=== PATIENT | female | born 1990 | race Caucasian/White ===

== ENCOUNTER → 2019-04-04 | Outpatient (CLI) | payer OTHER ==
[~2019-04-04] MED LIST: METHACHOLINE KIT (J7674) INH ONE
== END ==
LOC: M CARPUL 02-21 13:18
PROVIDERS: ATTEND Nurse Practitioner Adult Health
DX: Z53.9 Procedure and treatment not carried out, unspecified reason (principal); R06.02 Shortness of breath

== ENCOUNTER → 2019-04-24 | Outpatient (CLI) | payer OTHER ==
[2019-04-24 08:26] LABS: HCG, SERUM QUANTITATIVE < 1.0 MIU/ML
--- NOTE | 2019-04-24 09:00 | REP ---
Pelvic sonography: History: Infertility. Findings: Transvaginal scanning demonstrates normal uterine dimensions measured at 7.1 x 3.1 x 3.8 cm. The endometrial stripe is 0.3 cm thick. No focal uterine mass seen. No free fluid is noted. The overall dimensions of the right ovary today are 5.0 x 2.6 x 2.0 cm. There are no follicles in the ovary measuring greater than a centimeter. There are numerous (approximately 42) follicles in the right ovary ranging in size from 0.15-0.72 centimeters. The overall dimensions of the left ovary are 4.7 x 3.4 x 2.0 cm. There are no follicles in the left ovary measuring over a centimeter. There are numerous (approximately 53) subcentimeter follicles in the left ovary ranging in size from 0.19-0.75 cm. Impression: Ovarian follicle study as above. Electronically Signed by Raji Castillo MD 04/24/2019 08:51 A
[2019-04-24 10:03] LABS: ESTRADIOL 75.5 PG/ML
== END ==
LOC: M RAD 07:36
PROVIDERS: ATTEND Obstetrics & Gynecology
DX: Z31.41 Encounter for fertility testing (principal)

== ENCOUNTER → 2019-05-02 | Outpatient (CLI) | payer OTHER ==
--- NOTE | 2019-05-02 08:31 | REP ---
Clinical: Infertility. Technique: Transvaginal ultrasound examination. Findings: Anteverted uterus measures 7.3 x 2.7 x 3.8 cm with 3.7 mm endometrial stripe and few subcentimeter Nabothian cysts in the lower uterine segment/cervical region. Right ovary measures 4.5 x 2.1 x 3.8 cm and includes greater than 40 sub centimeter follicles between 2.0 and 8.1 mm. Left ovary measures 4.1 x 2.0 x 4.3 cm and includes greater than 50 sub centimeter follicles between 2.0 and 8.1 mm. Small amount of free fluid in the right adnexa. Impression: Bilateral sub centimeter follicles. Anteverted uterus with subcentimeter Nabothian cysts. Electronically Signed by Carlos Sanchez MD 05/02/2019 08:22 A
[2019-05-02 09:24] LABS: ESTRADIOL 40.6 PG/ML; LUTEINIZING HORMONE 22.5 mIU/mL
== END ==
LOC: M RAD 06:49
PROVIDERS: ATTEND Obstetrics & Gynecology
DX: Z31.41 Encounter for fertility testing (principal); N88.8 Other specified noninflammatory disorders of cervix uteri

== ENCOUNTER → 2019-05-06 | Outpatient (CLI) | payer OTHER ==
--- NOTE | 2019-05-06 09:40 | REP ---
TRANSVAGINAL PELVIC ULTRASOUND FOLLICLE STUDY: Real-time sonographic evaluation of the pelvis was performed utilizing transvaginal technique. The uterus measures 5.7 x 2.6 x 4.2 cm. Endometrial thickness is 4 mm. Endometrium has a trilaminar appearance. Right ovary measures 4.3 x 2.0 x 3.3 cm with resistive index 0.63 with duplex Doppler evaluation. There is a dominant follicle in the right ovary 12 x 7 mm. Multiple subcentimeter follicles are seen. Left ovary measures 4.4 x 2.3 x 3.4 cm with resistive index 0.65. Multiple subcentimeter follicles are seen in the left ovary without any follicles greater than 1 cm in diameter. Electronically Signed by Karlo Stevens MD 05/07/2019 10:36 A
[2019-05-06 10:42] LABS: ESTRADIOL 39.9 PG/ML; LUTEINIZING HORMONE 22.4 mIU/mL
== END ==
LOC: M RAD 08:04
PROVIDERS: ATTEND Obstetrics & Gynecology
DX: Z31.41 Encounter for fertility testing (principal)

== ENCOUNTER → 2019-05-13 | Outpatient (CLI) | payer OTHER ==
[2019-05-13 08:16] LABS: ESTRADIOL 36.2 PG/ML; LUTEINIZING HORMONE 39.9 mIU/mL
--- NOTE | 2019-05-13 08:32 | REP ---
Pelvic ultrasound, endovaginal imaging for ovarian follicle assessment: Right ovary: There are no follicles greater than 10 mm. There are approximately 45 follicles measuring 2.4 - 9.4 mm. The right ovary measures 5.8 x 2.7 x 2.6 cm. Left ovary: There is one follicle greater than 10 mm measuring 12.5 x 9.4 mm. Additionally, there are approximately 70 follicles measuring 2.0 - 8.2 mm. The left ovary measures 5.2 x 2.2 x 4.5 cm. The uterus is retroverted and normal size measuring 6 x 1 by 3.1 x 4.0 cm. The endometrium measures 4.2 mm thickness and has a trilaminar appearance. There is a small volume of free fluid in the cul-de-sac. Electronically Signed by Karlo Brasher MD 05/13/2019 08:24 A
== END ==
LOC: M RAD 07:09
PROVIDERS: ATTEND Obstetrics & Gynecology
DX: Z31.41 Encounter for fertility testing (principal); N85.4 Malposition of uterus

== ENCOUNTER → 2019-05-14 | Outpatient (CLI) | payer OTHER ==
[2019-05-14 09:41] LABS: ESTRADIOL 77.8 PG/ML; LUTEINIZING HORMONE 26.6 mIU/mL; PROGESTERONE 0.33 NG/ML
== END ==
LOC: M LAB 08:06
PROVIDERS: ATTEND Obstetrics & Gynecology
DX: Z31.41 Encounter for fertility testing (principal)

== ENCOUNTER → 2019-05-16 | Outpatient (CLI) | payer OTHER ==
[2019-05-16 08:51] LABS: LUTEINIZING HORMONE 9.3 mIU/mL
--- NOTE | 2019-05-16 09:08 | REP ---
Transvaginal pelvic sonography: History: Follicle study. Infertility. Findings: Uterine dimensions are normal at 7.2 x 3.3 x 3.8 cm. Endometrial stripe is 0.6 cm thick and centrally placed. No focal uterine mass is seen. No free fluid is noted. Overall dimensions of the right ovary today are 3.5 x 2.2 x 1.6 cm. There are no follicles over a centimeter in the right ovary. There are 66 follicles in the right ovary ranging in size from 0.2-0.9 cm. The left ovary has overall dimensions of 4.6 x 2.3 x 2.6 cm. There are two follicles over a centimeter in the left ovary measured as follows: 2.1 x 1.5, and 1.5 x 0.5 cm. In addition, there are 60 follicles in the left ovary ranging in size from 0.3-0.9 cm. Impression: Pelvic sonography ovarian follicle study as above. Electronically Signed by Raji Castillo MD 05/16/2019 08:59 A
[2019-05-16 14:46] LABS: PROGESTERONE 0.28 NG/ML
== END ==
LOC: M RAD 07:23
PROVIDERS: ATTEND Obstetrics & Gynecology
DX: Z31.41 Encounter for fertility testing (principal)

== ENCOUNTER → 2019-06-04 | Outpatient (CLI) | payer OTHER | LOC: M LAB 09:06 | PROVIDERS: ATTEND Obstetrics & Gynecology | DX: Z32.00 Encounter for pregnancy test, result unknown (principal) ==

== ENCOUNTER → 2019-06-06 | Outpatient (CLI) | payer OTHER ==
[2019-06-06 10:27] LABS: THYROID STIMULATING HORMONE 1.95 uIU/ML (0.358-3.740)
== END ==
LOC: M LAB 09:26
PROVIDERS: ATTEND Obstetrics & Gynecology
DX: Z32.01 Encounter for pregnancy test, result positive (principal)

== ENCOUNTER → 2019-06-13 | Outpatient (CLI) | payer OTHER ==
[2019-06-13 10:22] LABS: THYROID STIMULATING HORMONE 2.35 uIU/ML (0.358-3.740)
== END ==
LOC: M LAB 09:10
PROVIDERS: ATTEND Obstetrics & Gynecology
DX: Z32.01 Encounter for pregnancy test, result positive (principal); Z3A.00 Weeks of gestation of pregnancy not specified